=== PATIENT | male | born 1985 | race Caucasian/White ===

== ENCOUNTER 2022-09-09 10:19 | Emergency (ER) | payer OTHER, SELFPAY ==
--- NOTE | ~2022-09-09 | XR_ITS ---
EXAMINATION: XR HAND, RIGHT CLINICAL INFORMATION: Swelling, pain COMPARISON: None available. TECHNIQUE: PA, lateral, and oblique views of the right hand. FINDINGS: There is extensive soft tissue swelling around the head of the proximal phalanx second finger, no subcutaneous emphysema, adjacent bone is intact. The bones are normal. No fracture. Alignment is anatomic. Joint spaces are maintained. No erosions or soft tissue calcifications. XR/XR hand RT 2V IMPRESSION: * Extensive soft tissue swelling around the head of the proximal phalanx second finger. * No radiographic evidence of acute fracture.
[2022-09-09 10:52] VITALS: BP 122/84; PULSE 96; RESP 18; TEMP 36.9; O2SAT 98; BMI 21.7
[2022-09-09] MEDS: Lidocaine HCl 1 % MPF 2 ML VIAL INFILTRATI ×2 (11:09→11:22)
--- NOTE | 2022-09-09 11:14 | ED.EXTPRO ---
HPI - Extremity Problem General Chief complaint: Extremity Problem Stated complaint: Infected finger on R hand Time Seen by Provider: 09/09/22 10:56 Source: patient Mode of arrival: ambulatory Limitations: no limitations History of Present Illness HPI Narrative: 36-year-old male with history of opiate use disorder on methadone who was right hand dominant who presents to the ER with complaints of right index finger swelling, redness and pain for the last few days. Patient cannot recall if there is any injury or trauma. He reports he has tried to open it at home with a clean needle but was unable to express any drainage. He denies any fevers or chills. He reports that he has a lot of pain and swelling in the finger with difficulty with range of motion. No associated weakness, numbness or tingling. Patient reports he does have a history of opiate use disorder but has been sober and has not been using any IV drugs Related Data Previous Rx's Medication Instructions Recorded cephalexin 500 mg capsule 500 mg PO BID #14 caps 09/09/22 doxycycline monohydrate 100 mg 100 mg PO BID #14 caps 09/09/22 capsule ibuprofen 600 mg tablet 600 mg PO Q8H PRN pain #20 tabs 09/09/22 Allergies Allergy/AdvReac Type Severity Reaction Status Date / Time codeine [CODEINE] Allergy Unknown Vomiting Unverified 07/29/22 06:43 erythromycin base Allergy Unknown Unknown Unverified 07/29/22 06:43 [ERYTHROMYCIN BASE] Codeine Sulfate Allergy Unknown Unknown Uncoded 07/29/22 06:43 Review of Systems Review of Systems: Yes all other systems are reviewed and are negative Constitutional: Constitutional: Reports no additional constitutional complaints, Denies body ache(s), Denies chills, Denies fever(s), Denies headache(s) and Denies weakness Eyes: Eyes: Reports no additional eye complaints and Denies change in vision ENT: Reports system reviewed and no additional complaints, except as documented, Denies dizziness, Denies headache(s), Denies nasal congestion, Denies nasal discharge and Denies neck pain Cardiovascular: Cardiovascular: Reports no additional cardiovascular complaints, Denies chest pain, Denies leg edema and Denies dyspnea Respiratory: Respiratory: Reports no additional respiratory complaints, Denies cough and Denies dyspnea Gastrointestinal: Gastrointestinal: Reports no additional gastrointestinal complaints, Denies abdominal pain, Denies diarrhea, Denies nausea and Denies vomiting Genitourinary: Genitourinary: Denies urinary incontinence Musculoskeletal: Musculoskeletal: Reports no additional musculoskeletal complaints, Denies back pain, Denies arthralgias, Reports joint swelling, Reports limited range of motion, Denies neck pain, Denies numbness and Denies tingling Integumentary/Breasts: Skin/Breast: Reports system reviewed and no additional complaints, except as docu, Reports swelling, Reports erythema and Denies rash Neurologic: Reports system reviewed and no additional complaints, except as documented, Denies Abnormal speech present, Denies dizziness, Denies headache(s), Denies numbness, Denies tingling and Denies weakness PMFSH Past Medical History Attestation statement: The following information was validated with the patient. Source: old records reviewed and nursing notes reviewed Social History Social History Advance Directives: No Advance Directives Information Provided: Yes Physical Exam Vital Signs: Vital Signs: Last Vital Signs Temp 98.4 F 09/09/22 10:52 Pulse 96 09/09/22 10:52 Resp 18 09/09/22 10:52 BP 122/84 09/09/22 10:52 Pulse Ox 98 09/09/22 10:52 O2 Del Method Room Air 09/09/22 10:52 BMI result Body Mass Index 21.7 Const: General: cooperative, healthy appearing, comfortable and no acute distress Orientation/consciousness: patient oriented x3 Limitations: no limitations HEENT: Head: Yes normal to inspection Ears: hearing grossly normal bilaterally General nose exam: Normal external nose present Face and sinus: Yes normal facial exam Mouth: Normal oral and palatal mucosa present Throat: Yes posterior oropharynx normal Eyes: General: appearance normal, both eyes and all related structures Pupils: Equal, round and reactive pupils present Neck: Neck: Yes normal visual inspection Chest: Chest palpation & inspection: normal inspection of the chest Resp: Effort & Inspection: normal respiratory effort Auscultation: clear to auscultation bilaterally Cardio: Rate: regular rate Rhythm: regular rhythm Peripheral pulses: Peripheral pulses 2+ throughout GI: Inspection: Yes normal to inspection Palpation (GI): Soft to palpation and nontender Auscultation: normal bowel sounds Back/Spine/Pelvis: Thoracic/Lumbar Spine: thoracic and lumbar spine normal to inspection Skin: General skin exam: no rashes or lesions noted Neuro: General: patient oriented x3, no focal motor deficits and normal sensation to monofilament Cranial nerves: Yes Equal, round and reactive pupils present Cognition (Neuro): normal cognition Speech: No Abnormal speech present Gait exam (Neuro): Normal gait present Motor exam (neuro): 5/5 motor strength present throughout Extrem: Other: The area above is tender/fluctuant and warm. Limited active flexion d/t pain/swelling, extension is normal. Sensation intact distally. Course Course Course Narrative: X-ray shows no evidence of osteomyelitis. Patient had an I&D but we were unfortunately only able to express a small amount of serosanguineous fluid from the site. Patient does have some limited flexion which may be secondary to pain or swelling however could consider underlying deeper infection. I doubt tenosynovitis as patient has intact passive ROM. I spoke to hand surgery on-call. They will be happy to follow up with the patient the next few days in the office. I will initiate oral antibiotics in the meantime. I did discuss all this with the patient and I recommended that he return for any increase in swelling, increasing pain, limited range of motion, fever. Comfortable discharge home. Medications Administered Discontinued Medications Generic Name Dose Route Start Last Admin Trade Name Freq PRN Reason Stop Dose Admin Ketorolac Tromethamine 60 mg 09/09/22 12:55 09/09/22 13:08 Ketorolac Tromethamine 60 Mg/2 Ml Vial IM 09/09/22 12:56 60 mg ONCE ONE Administration Lidocaine HCl 2 ml 09/09/22 11:01 09/09/22 11:09 Lidocaine Hcl 1 % Mpf 2 Ml Vial INFILTRATI 09/09/22 11:02 2 ml ONCE ONE Administration Lidocaine HCl 2 ml 09/09/22 11:08 09/09/22 11:22 Lidocaine Hcl 1 % Mpf 2 Ml Vial INFILTRATI 09/09/22 11:09 2 ml ONCE ONE Administration Medical Decision Making Medical Decision Making [facility] Narrative: 36 yo male right hand dominant here with right index finger swelling/redness/limited ROM from unknown cause. Will obtain x-ray of hand, need I&D with digital block and culture. Differential Diagnosis Differential Diagnoses: The differential diagnosis associated with the presentation includes cellulitis, osteomyelitis, abscess, tenosynovitis Consult Healthcare Provider Management of the patient was discussed with: [facility] (Eve BARTON)-spoke to Eve BARTON as patient has limited ROM (may be from swelling/pain), unable to drain much from I&D-may need close follow-up and see if cellulitis is improving or if patient needs any further intervention-she is happy to see patient in office outpatient. Independent Interpretation I performed an independent interpretation of an: Plain X-Ray Interpretation: I independently viewed x-rayed you with radiologist report Radiology Impression Discussion of test interpretation with radiology: I have reviewed the radiologist's reading. Radiologist Impression: [address] [address] XRay Report Signed Patient: Jesús Pimentel MR#: [id number] : 1985 Acct:[id number] Age/Sex: 36 / M ADM Date: 09/09/22 Loc: .ED Attending Dr: Ordering Physician: Prerna Harrell MD Date of Service: 09/09/22 Procedure(s): XR hand RT 2V Accession Number(s): [id number] cc: Prerna Harrell MD~ EXAMINATION: XR HAND, RIGHT CLINICAL INFORMATION: Swelling, pain? COMPARISON: None available.? TECHNIQUE: PA, lateral, and oblique views of the right hand. FINDINGS: There is extensive soft tissue swelling around the head of the proximal phalanx second finger, no subcutaneous emphysema, adjacent bone is intact. The bones are normal. No fracture. Alignment is anatomic. Joint spaces are maintained. No erosions or soft tissue calcifications.? XR/XR hand RT 2V IMPRESSION: ? *? Extensive soft tissue swelling around the head of the proximal phalanx second finger. ? *? No radiographic evidence of acute fracture. ? Procedures Abscess I/D Site: hand Side (if applicable): right Local Anesthetic: other anesthetic Technique: needle aspiration and incised with blade Amount of fluid expressed (mL): 1 Sent for culture/gram staining?: Yes Irrigation: No Packing used?: none Nerve Block Nerve Block 1: Local Anesthetic: lidocaine 1% Amount of anesthesia used (mL): 3 Side: right Nerve Blocks: digital Procedure Successful: Yes Patient Tolerated Procedure: well Complications: none Discharge Plan Discharge Clinical Impression: Cellulitis Patient Disposition: Home, Self-Care Instructions: Cellulitis (DC), Warm Compress or Soak (ED) Additional Instructions: Warm soaks Alternate Motrin/Tylenol for pain as needed Take all the antibiotics as prescribed Return for increasing redness, increasing swelling, fever I will speak to the orthopedic surgeon today. Please call them tomorrow to set up an appointment for follow-up Prescriptions: New ibuprofen 600 mg tablet 600 mg PO Q8H PRN (Reason: pain) Qty: 20 0RF cephalexin 500 mg capsule 500 mg PO BID Qty: 14 0RF doxycycline monohydrate 100 mg capsule 100 mg PO BID Qty: 14 0RF Referrals: [facility] [Provider Group] - 1 week Stand Alone Forms: Work/School Release Interventions: ED Discharge Assessment Last Done: 09/09/22 13:20 Discharge Date/Time: 09/09/22 13:21
[2022-09-09] MEDS: Ketorolac Tromethamine 60 MG/2 ML VIAL IM (13:08)
== END 2022-09-09 13:21 | disposition home or self-care (01) ==
PROVIDERS: Emergency Provider Student in an Organized Health Care Education/Training Program; PCP Internal Medicine
DX: L03.011 Cellulitis of right finger (principal); M79.644 Pain in right finger(s)
CPT/HCPCS: 10060; 73120; 87070; 87077; 87186; 87205; 96372; 99283; 99284; J1885

== ENCOUNTER 2023-05-09 14:08 | Emergency (ER) | payer OTHER, SELFPAY ==
[2023-05-09 14:15] VITALS: BP 136/74; BP 155/135; PULSE 120; PULSE 132; RESP 18; TEMP 36.5; O2SAT 100; BMI 21.4
--- NOTE | 2023-05-09 14:24 | MHC.EDTECH ---
belongings in [place]
--- NOTE | 2023-05-09 14:24 | MHC.EDTECH ---
patient was changed over with security.
--- NOTE | 2023-05-09 15:00 | ECG_ITS ---
Test Reason : TACHYCARDIA Blood Pressure : / mmHG Vent. Rate : 110 BPM Atrial Rate : 110 BPM P-R Int : 162 ms QRS Dur : 104 ms QT Int : 372 ms P-R-T Axes : 063 056 017 degrees QTc Int : 503 ms Sinus tachycardia Incomplete right bundle branch block Borderline ECG When compared with ECG of 21-AUG-2012 14:06, Vent. rate has increased BY 37 BPM Referred By: Zaira Douglas Electronically Signed By:TRA TOLENTINO MD
[2023-05-09] MEDS: 0.9 % Sodium Chloride 1,000 ML 999 ML IV (15:10)
--- NOTE | 2023-05-09 15:10 | ED.GENADULT ---
HPI - General Adult General Chief complaint: Overdose Stated complaint: HEROIN USE Time Seen by Provider: 05/09/23 14:45 Source: patient and EMS Mode of arrival: EMS Limitations: no limitations History of Present Illness HPI narrative: 37-year-old male with a history of opiate use disorder presents to the ER with palpitations and anxiety. Patient reports that he sniffed 7-8 bags of heroin and then developed palpitations. He believes it may have been mixed with cocaine. He denies any intentional overdose. No SI or HI. He is currently on methadone but has missed his doses the last 2 days. He is interested in detox. Related Data Previous Rx's Medication Instructions Recorded cephalexin 500 mg capsule 500 mg PO BID #14 caps 09/09/22 doxycycline monohydrate 100 mg 100 mg PO BID #14 caps 09/09/22 capsule ibuprofen 600 mg tablet 600 mg PO Q8H PRN pain #20 tabs 09/09/22 Allergies Allergy/AdvReac Type Severity Reaction Status Date / Time codeine [CODEINE] Allergy Unknown Vomiting Verified 05/09/23 15:10 erythromycin base Allergy Unknown Unknown Verified 05/09/23 15:10 [ERYTHROMYCIN BASE] Codeine Sulfate Allergy Unknown Unknown Uncoded 05/09/23 15:10 Review of Systems Review of Systems: Yes all other systems are reviewed and are negative Constitutional: Constitutional: Reports no additional constitutional complaints, Denies body ache(s), Denies chills, Denies fever(s), Denies headache(s) and Denies weakness Eyes: Eyes: Reports no additional eye complaints and Denies change in vision ENT: Reports system reviewed and no additional complaints, except as documented, Denies dizziness, Denies headache(s), Denies nasal congestion, Denies nasal discharge and Denies neck pain Cardiovascular: Cardiovascular: Reports no additional cardiovascular complaints, Denies chest pain, Denies leg edema, Reports palpitations and Denies dyspnea Respiratory: Respiratory: Reports no additional respiratory complaints, Denies cough and Denies dyspnea Gastrointestinal: Gastrointestinal: Reports no additional gastrointestinal complaints, Denies abdominal pain, Denies diarrhea, Denies nausea and Denies vomiting Genitourinary: Genitourinary: Denies urinary incontinence Musculoskeletal: Musculoskeletal: Reports no additional musculoskeletal complaints, Denies back pain, Denies arthralgias, Denies joint swelling, Denies neck pain, Denies numbness and Denies tingling Integumentary/Breasts: Skin/Breast: Reports system reviewed and no additional complaints, except as docu and Denies rash Neurologic: Reports system reviewed and no additional complaints, except as documented, Denies Abnormal speech present, Denies dizziness, Denies headache(s), Denies numbness, Denies tingling and Denies weakness Endocrine: Endocrine: Reports palpitations PMFSH Past Medical History Attestation statement: The following information was validated with the patient. Source: old records reviewed and nursing notes reviewed Social History Social History Alcohol intake: current Alcohol intake frequency: holidays/special occasions only Smoked in Last 30 Days: No Use of substances other than those prescribed or required for medical reasons: Yes Substance Use Type: Heroin Substance Use Frequency: Chronic Longstanding Last Used Substance: Just Prior to Admission Any prior treatment program specific to substance use: Yes Advance Directives: No Advance Directives Information Provided: No Physical Exam ED Vital Signs: Vital Signs - 24 hr 05/09/23 14:15 05/09/23 15:48 05/09/23 17:14 Temperature 97.7 F Pulse Rate 132 H 111 H 100 Respiratory Rate 18 14 12 Blood Pressure 155/135 H 104/44 L 108/56 L Pulse Oximetry 100 99 99 Oxygen Delivery Method Room Air Room Air Room Air 05/09/23 19:35 Temperature 97.7 F Pulse Rate 102 H Respiratory Rate 16 Blood Pressure 113/70 Pulse Oximetry 96 Oxygen Delivery Method Room Air BMI result Body Mass Index 21.4 Const General: cooperative, healthy appearing, comfortable and no acute distress Orientation/consciousness: patient oriented x3 Limitations: no limitations HENOR Head: Yes normal to inspection Ears: hearing grossly normal bilaterally General nose exam: Normal external nose present Face and sinus: Yes normal facial exam Mouth: Normal oral and palatal mucosa present Throat: Yes posterior oropharynx normal Eyes General: appearance normal, both eyes and all related structures Pupils: Equal, round and reactive pupils present Neck Neck: Yes normal visual inspection Chest Chest palpation & inspection: normal inspection of the chest Resp Effort & Inspection: normal respiratory effort Auscultation: clear to auscultation bilaterally Cardio Rate: regular rate Rhythm: regular rhythm Peripheral pulses: Peripheral pulses 2+ throughout GI Inspection: Yes normal to inspection Palpation (GI): Soft to palpation and nontender Auscultation: normal bowel sounds Back/Spine/Pelvis Thoracic/Lumbar Spine: thoracic and lumbar spine normal to inspection Skin General skin exam: no rashes or lesions noted Neuro General: patient oriented x3, no focal motor deficits and normal sensation to monofilament Cranial nerves: Yes Equal, round and reactive pupils present Cognition (Neuro): normal cognition Speech: No Abnormal speech present Gait exam (Neuro): Normal gait present Motor exam (neuro): 5/5 motor strength present throughout Extrem General: Yes normal to inspection Course Course Course Narrative: 1600-Sign out to Drew BARTON pending re-evaluation, urine studies. Reevaluation(s) Reevaluation #1: Urine positive for opiates and fentanyl. Urine negative for UTI. Second troponin negative for heart attack. Patient will be discharged. Time: 19:51 Medications Administered Discontinued Medications Generic Name Dose Route Start Last Admin Trade Name Freq PRN Reason Stop Dose Admin Sodium Chloride 1,000 mls @ 999 mls/hr 05/09/23 15:00 05/09/23 16:11 Ns IV 05/09/23 16:00 Infused .Q1H1M STA Infusion Lorazepam 1 mg 05/09/23 15:00 05/09/23 15:15 Lorazepam 1 Mg Tablet PO 05/09/23 15:01 1 mg ONCE ONE Administration Medical Decision Making Medical Decision Making [facility] Narrative: 37-year-old male with a history of opiate use disorder presents to the ER with palpitations and anxiety.? Patient reports that he sniffed 7-8 bags of heroin and then developed palpitations.? He believes it may have been mixed with cocaine.? He denies any intentional overdose.? No SI or HI.? He is currently on methadone but has missed his doses the last 2 days.? He is interested in detox. Patient is tachycardic. Otherwise exam is normal. He is alert and oriented. Will obtain labs, EKG. Patient received IV fluids, low-dose Ativan and will reassess. Differential Diagnosis Differential Diagnoses: The differential diagnosis associated with the presentation includes polysubstance use Admission/Observation Consideration of admission/observation: Escalation of care including admission/observation considered Consult Healthcare Provider Management of the patient was discussed with: Behavioral Health Provider The patient did meet with our recovery team. At this time he is not interested in inpatient detox. He was provided with outpatient resource Lab Data [facility] Lab Attestation statement: I reviewed the patient's lab results. 05/09/23 15:10 05/09/23 15:10 Labs: Lab Results 05/09/23 05/09/23 05/09/23 Range/Units 15:10 16:14 17:16 WBC 5.8 (4.8-10.8) X10*3/uL RBC 4.10 L (4.60-5.80) X10*6/uL Hgb 12.1 L (14.0-18.0) g/dl Hct 35.9 L (42.0-52.0) % MCV 87.6 (80.0-98.0) fL MCH 29.5 (27.0-33.0) pg MCHC 33.7 (31.0-36.0) g/dl RDW 12.4 (11.0-16.0) % Plt Count 226 (160-400) X10*3/uL MPV 9.6 (9.4-12.4) fL Immature Gran % (Auto) 0.5 H (0.0-0.4) % Neut % (Auto) 63.6 (45-73) % Lymph % (Auto) 17.2 L (20-40) % Early % (Auto) 7.8 (2-11) % Eos % (Auto) 9.7 H (0-4) % Baso % (Auto) 1.2 (0-2) % Lymph # (Auto) 1.0 L (1.2-4.9) X10*3/uL Early # (Auto) 0.5 (0.1-1.2) X10*3/uL Eos # (Auto) 0.6 H (0.0-0.4) X10*3/uL Baso # (Auto) 0.1 (0.0-0.2) X10*3/uL Abs Immat Gran (auto) 0.03 (0.00-0.03) X10*3/uL Absolute Neuts (auto) 3.7 (2.0-8.3) x10*3/uL Absolute Nucleated RBC 0.000 (0.0-0.012) X10*3/uL Nucleated RBC % (auto) 0.0 (0.0-0.2) /100WBC Sodium 140 (135-145) mmol/L Potassium 4.4 (3.3-5.1) mmol/L Chloride 102 (96-108) mmol/L Carbon Dioxide 31 H (22-29) mmol/L Anion Gap 11 L (12-20) BUN 17 H (9-16) mg/dL Creatinine 1.08 (0.5-1.4) mg/dL Estim Creat Clear Calc 91.2 Estimated GFR > 60 Random Glucose 83 (60-115) mg/dL Calcium 9.1 (8.4-10.2) mg/dL Total Bilirubin 0.3 (0.0-1.0) mg/dL Direct Bilirubin 0.1 (0.0-0.5) mg/dL AST 33 (5-37) U/L ALT 54 H (0-40) U/L Alkaline Phosphatase 61 (39-117) U/L Total Creatine Kinase 73 (38-174) U/L Troponin I High Sens < 2.7 4.9 D (<3.5-35.0) ng/L Total Protein 6.7 (6.5-8.0) g/dL Albumin 4.1 (3.5-5.0) g/dL Urine Color Dark Yellow Urine Appearance Clear Urine pH 6.5 (5.0-9.0) Ur Specific [place] >= 1.030 H (1.005-1.025) Urine Protein Negative (Neg-Trace) mg/dL Urine Glucose (UA) Negative (Negative) mg/dL Urine Ketones Trace (Negative) mg/dL Urine Blood Negative (Negative) Urine Nitrite Negative (Negative) Ur Leukocyte Esterase Trace H (Negative) Urine RBC 0-2 (0-2) /HPF Urine WBC 0-5 (0-5) /HPF Ur Squamous Epith Cells 0-2 (0-2) /HPF Urine Bacteria None Seen (None Seen) Hyaline Casts 0-2 (0-2) /LPF Urine Opiates Screen POSITIVE H (Not Detect) Urine Fentanyl Screen POSITIVE H (Not Detect) Ur Barbiturates Screen Not Detected (Not Detect) Ur Phencyclidine Scrn Not Detected (Not Detect) Ur Amphetamines Screen Not Detected (Not Detect) U Benzodiazepines Scrn Not Detected (Not Detect) Urine Cocaine Screen Not Detected (Not Detect) U Marijuana (THC) Screen Not Detected (Not Detect) Independent Historian Clinical information obtained from an independent historian. History obtained from or confirmed by: Parent and EMS Discharge Plan Discharge Clinical Impression: Substance use Patient Disposition: Home, Self-Care Instructions: Polysubstance Abuse (ED) Prescriptions: No Action ibuprofen 600 mg tablet 600 mg PO Q8H PRN (Reason: pain) Qty: 20 0RF cephalexin 500 mg capsule 500 mg PO BID Qty: 14 0RF doxycycline monohydrate 100 mg capsule 100 mg PO BID Qty: 14 0RF Referrals: Po,Ondina Barragan MD [Primary Care Provider] - 1 week Interventions: ED Discharge Assessment Last Done: 05/09/23 19:58 Discharge Date/Time: 05/09/23 19:59 Print Language: Arabic
[2023-05-09] MEDS: LORazepam 1 MG TABLET PO (15:15)
[2023-05-09 15:19] LABS: MANUAL DIFF FLAG NO
--- NOTE | 2023-05-09 15:20 | PC.NURSE ---
pt speaking w/ recovery team at this time.
[2023-05-09 15:23] LABS: Basophils Absolute Auto 0.1 X10*3/uL (0.0-0.2); Basophils Percent Auto 1.2 % (0-2); Eosinophils Absolute Auto 0.6 X10*3/uL (0.0-0.4); Eosinophils Percent Auto 9.7 % (0-4); Hematocrit 35.9 % (42.0-52.0); Hemoglobin 12.1 g/dl (14.0-18.0); Imm Gran Abs Auto 0.03 X10*3/uL (0.00-0.03); Imm Gran Pct Auto 0.5 % (0.0-0.4); Lymphocytes Percent Auto 17.2 % (20-40); Mean Corpuscular HGB Conc 33.7 g/dl (31.0-36.0); Mean Corpuscular Hemoglobin 29.5 pg (27.0-33.0); Mean Corpuscular Volume 87.6 fL (80.0-98.0); Mean Platelet Volume 9.6 fL (9.4-12.4); Monocytes Absolute Auto 0.5 X10*3/uL (0.1-1.2); Monocytes Percent Auto 7.8 % (2-11); Neutrophils Absolute Auto 3.7 x10*3/uL (2.0-8.3); Neutrophils Percent Auto 63.6 % (45-73); Platelet Count 226 X10*3/uL (160-400); Red Cell Distribution Width 12.4 % (11.0-16.0); White Blood Count 5.8 X10*3/uL (4.8-10.8)
--- NOTE | 2023-05-09 15:23 | PC.NURSE ---
pt speaking w/ recovery team at this time. family bedside. call vivas placed within reach.
--- NOTE | 2023-05-09 15:24 | PC.NURSE ---
a&ox4, vss and up to date aside from being sinus tachy on the monitoring analyst. pt comes in today d/t worry after ingesting 7 bags of heroin intranasally. pt states that he snorts heroin around 6 times a day. pt states that after using [employer] - the sensation he felt seemed different than usual and he thinks that it was laced with another substance. pt has no complaints. denies pain/n/v/d. pt denies SI/HI at this time. pt states that he is interested in detox at this time. 20gIV placed in the left AC w/o difficulty. labs drawn and sent to lab. medications administered per provider order. no sob/wob noted. respirations even/unlabored. family bedside. call vivas placed within reach.
--- NOTE | 2023-05-09 15:33 | MHC.RECOVSUP ---
Met with pt in ED18 who is here for AZIZA. Pt informs he usually takes about 6 bags of heroin every 6 hours nasally however today he took 4 bags and started to feel anxious and thinks there was cocaine in his heroin. Pt has no history of OD or ATS and is currently getting Methadone take homes from [facility] but does not want to take a dose today until he feels better from the anxiety. Pt is not interested in ATS at this time but is open to it in the future if he is unable to slow down his use. T/W reviewed harm reduction and overdose prevention with pt who verbalized understanding and had no other questions or concerns at this time. Provider informed pt is not interested in ATS.
[2023-05-09 15:48] VITALS: BP 104/44; PULSE 111; RESP 14; O2SAT 99
[2023-05-09 15:51] LABS: Alanine Aminotransferase 54 U/L (0-40); Albumin Level 4.1 g/dL (3.5-5.0); Alkaline Phosphatase 61 U/L (39-117); Anion Gap 11 (12-20); Aspartate Amino Transferase 33 U/L (5-37); Bilirubin Direct 0.1 mg/dL (0.0-0.5); Bilirubin Total 0.3 mg/dL (0.0-1.0); Blood Urea Nitrogen 17 mg/dL (9-16); Calcium 9.1 mg/dL (8.4-10.2); Carbon Dioxide 31 mmol/L (22-29); Chloride 102 mmol/L (96-108); Creatinine Clr Calc Pharmacy 91.2; Estimated Glomerular Filt Rate > 60; Glucose Random 83 mg/dL (60-115); Potassium 4.4 mmol/L (3.3-5.1); Sodium 140 mmol/L (135-145); Total Protein 6.7 g/dL (6.5-8.0); Troponin-I High Sensitivity < 2.7 ng/L (<3.5-35.0)
[2023-05-09 16:26] LABS: Appearance Urine Clear; Color Urine Dark Yellow; Glucose Urine UA Negative (Negative); Leukocyte Esterase Urine Trace (Negative); Nitrite Urine Negative (Negative); PH 6.5 (5.0-9.0); Specific Gravity - Urine >= 1.030 (1.005-1.025); UMIC TRIGGER UACC YES; Urine Blood Negative (Negative); Urine Ketones Trace mg/dL (Negative); Urine Protein Negative (Neg-Trace)
[2023-05-09 16:35] LABS: Amphetamine Screen Urine Not Detected (Not Detect); Barbiturates, Urine Not Detected (Not Detect); Benzodiazepines Screen Urine Not Detected (Not Detect); Cannabinoid Screen Urine Not Detected (Not Detect); Cocaine Screen Urine Not Detected (Not Detect); Fentanyl, urine POSITIVE (Not Detect); Opiate Screen Urine POSITIVE (Not Detect); Phencyclidine Screen Urine Not Detected (Not Detect)
[2023-05-09 17:14] VITALS: BP 108/56; PULSE 100; RESP 12; O2SAT 99
--- NOTE | 2023-05-09 17:15 | PC.NURSE ---
vss and up to date a this time. pt remains sinus tachy at this time but HR continues to decrease. repeat trop obtained/sent to lab. resting comfortably in no apparent distress. respirations remain even and unlabored. family bedside. call vivas placed within reach.
[2023-05-09 17:30] LABS: Bacteria Urine None Seen (None Seen); Hyaline Casts Urine 0-2 /LPF (0-2); RBC Urine 0-2 /HPF (0-2); Squamous Epithelial Cell Urine 0-2 /HPF (0-2); WBC Urine 0-5 /HPF (0-5)
[2023-05-09 17:39] LABS: Troponin-I High Sensitivity 4.9 ng/L (<3.5-35.0)
[2023-05-09 19:35] VITALS: BP 113/70; PULSE 102; RESP 16; TEMP 36.5; O2SAT 96
--- NOTE | 2023-05-09 19:58 | PC.NURSE ---
belongings obtained from [employer]. pt provided w/ d/c paperwork.
== END 2023-05-09 19:59 | disposition home or self-care (01) ==
PROVIDERS: Nurse Practitioner Family; Physician Assistant; Emergency Provider Student in an Organized Health Care Education/Training Program; PCP Internal Medicine
DX: R00.2 Palpitations (principal); F41.1 Generalized anxiety disorder; F43.0 Acute stress reaction; R00.0 Tachycardia, unspecified; F11.10 Opioid abuse, uncomplicated; R11.2 Nausea with vomiting, unspecified; Z71.51 Drug abuse counseling and surveillance of drug abuser; Z79.899 Other long term (current) drug therapy
CPT/HCPCS: 36415; 80048; 80076; 80307; 81001; 82550; 84484; 85025; 93005; 96360; 99284; 99285

== ENCOUNTER → 2023-05-09 15:00 | Outpatient (BNV) | payer OTHER, SELFPAY | PROVIDERS: Emergency Provider Student in an Organized Health Care Education/Training Program; PCP Internal Medicine; Visit Provider Internal Medicine Cardiovascular Disease | DX: R00.0 Tachycardia, unspecified (principal); I45.10 Unspecified right bundle-branch block | CPT/HCPCS: 93010 ==

== ENCOUNTER 2024-07-06 09:08 | Outpatient (AMB) | payer OTHER, SELFPAY ==
[2024-07-06 09:09] VITALS: BP 128/76; PULSE 83; O2SAT 98; BMI 24.0
--- NOTE | 2024-07-06 09:09 | A.OFFPC_ITS ---
Vital Signs 07/06/24 09:09 Height 5 ft 11 in Weight 172 lb BMI 24.0 BP 128/76 Blood Pressure Location Lt brachial Position Sitting Pulse 83 Pulse Source Pulse Oximeter Pulse Oximetry (%) 98 Oxygen Delivery Method Room Air Intake Visit Reasons: establish care Intake Note: Patient states taking 200 mg of methadone Allergies codeine [CODEINE] Allergy (Unknown, Verified 07/06/24 09:09) Vomiting erythromycin base [ERYTHROMYCIN BASE] Allergy (Unknown, Verified 07/06/24 09:09) Unknown Codeine Sulfate Allergy (Unknown, Uncoded 07/06/24 09:09) Unknown Medication List - Last Reconciled 07/06/24 by Ondina Mahoney MD alpha lipoic acid 100 mg PO DAILY [collagen gummy PO .QD] finasteride 1 mg PO DAILY hydroxyzine HCl 50 mg PO BID PRN methadone 100 mg PO BID minoxidil 5% ([employer] Minoxidil) ea topical multivitamin 1 tab PO DAILY omega 8-xvl-ymm-fish oil 120-180-600 mg (Extreme Ty Ty-3) caps PO Tobacco use date assessed: 07/06/24 Dental Screening Dental Screen Date: 07/06/24 Did you have a dental visit in the last 12 months?: No Did you have a dental problem in the last 6 months where you did not have access to dental care?: No Was dental information given to patient?: Patient has dentist HPI establish care HPI Details The patient is a 38-year-old male presenting with a history of polysubstance abuse, primarily heroin and fentanyl, currently in remission with methadone maintenance therapy (200 mg per day in divided doses). He was previously seen in the emergency room in April 2023 for heroin use, where he experienced palpitations and anxiety. During that visit, blood work indicated anemia (hemoglobin 12.1 g/dL), elevated liver enzymes (AST 54 U/L), and positive urine screening for opiates and fentanyl. The patient reports a long-standing issue of anxiety for which he is currently taking hydroxyzine 50 mg per day in divided doses. He also reports hair loss for which he is using minoxidil and taking finasteride. The patient has an allergy to codeine and urethromycin. He reports intermittent rectal bleeding believed to be due to hemorrhoids, with blood noticeable on defecation. He has noted improvement in bleeding with the use of hydroxyzine. He last observed blood in stool approximately one month ago. The patient denies current alcohol consumption and reports smoking cessation over 20 years ago. He has experienced a significant lifestyle change post- detoxification since April 2023. - Encourage hydration and dietary adjust ments (minimal animal proteins, increase plant proteins) - Discussed flu and tetanus vaccinations - Advised on preventative measures again st COVID-19, flu, RSV, and norovirus - Recommended regular physical activity - Reports cessation of alcohol and cigar ette use, with methadone as the only current substance - Engaged in daily exercise, primarily c ycling - Regular dietary supplements intake (mu ltivitamins, collagen, omega 3/6/9, protein shakes) - No recent employment or familial respo nsibilities discussed - Lives alone, habits indicate a focus o n health improvement post-detox - Gastrointestinal: Denies constipation, recent cessation of rectal bleeding - Genitourinary: Expresses occasional ur inary hesitance primarily when waking - General: Denies nausea, vomiting, feve rs, frequent urination at night - Neurological: Denies seizures - Hematologic: Confirms past anemia diag nosis - Labs: Hemoglobin 12.1 g/dL, AST 54 U/L , Normal electrolytes, creatinine 1.08 mg/dL PFSH Family History (Updated 07/06/24 @ 09:31 by Ondina Mahoney MD) Mother Rheumatoid arthritis Father No problems noted. Maternal Aunt CVA (cerebral vascular accident) Maternal Grandfather CVA (cerebral vascular accident) Social History (Updated 07/06/24 @ 09:34 by Ondina Mahoney MD) Housing: Other Housing Other:: Lives with family Alcohol intake: former Comment: 2022 Patient Tobacco Use Status: Former Tobacco user Tobacco use type: Cigarette Years Smoked: stopped 1999, no marijuana 2022, last time used drugs 04/26/2024 Detox e-Cigarette/Vaping Use: Never Used Second Hand Smoke Exposure: Yes Substance Use Type: Heroin service: No Current occupational status: unemployed Current occupational exposures/hazards: No Cognitive needs: No Hearing needs: No Vision needs: Yes Questionnaire PHQ-9 Over the last 2 weeks, how often have you been bothered by any of the following problems? 1. Little interest or pleasure in doing things: not at all 2. Feeling down, depressed, or hopeless: not at all 3. Trouble falling or staying asleep, or sleeping too much: not at all 4. Feeling tired or having little energy: not at all 5. Poor appetite or overeating: not at all 6. Feeling bad about yourself - or that you are a failure or have let yourself or your family down: not at all 7. Trouble concentrating on things, such as reading the newspaper or watching television: not at all 8. Moving or speaking so slowly that other people could have noticed. Or the opposite - being so fidgety or restless that you have been moving around a lot more than usual: not at all 9. Thoughts that you would be better off or of hurting yourself in some way: not at all Total score: 0 Depression Screening Interpretation: Negative Depression Screening Done: Yes 60583 - PHQ-9 Billing: Yes Source: Developed by Drs. Ben Espinosa, Stephania Armas, Cas Wiggins and colleagues, with an educational suzan from [employer]. Thrive Questionnaire Date Thrive assessed: 07/06/24 I am a: Patient What is your living situation today?: I have a steady place to live Within the past 12 months, did the food you bought not last and you didn't have the money to get more?: Never true Within the past 12 months, did you worry whether your food would run out before you got money to buy more?: Never true Do you have trouble paying for medicines?: No Do you have trouble getting transportation to medical appointments?: No Do you have trouble paying your heating and electricity bill?: No Do you have trouble taking care of your child, family member or friend?: No Do you have trouble with day-to-day activities such as bathing, preparing meals, shopping, managing finances, etc.?: No Are you currently unemployed and looking for a job?: No Are you interested in more education?: No Currently or been in a relationship where the following occur: No concerns reported THRIVE Score: 0 AUDIT C Alcohol Use Questionnaire (AUDIT-C) 1. How often do you have a drink containing alcohol?: Never 3. How often do you have six or more drinks on one occasion?: Never Total Score: 0 SHANNON-7 AMB Questionnaire SHANNON-7 Date SHANNON - 7 assessed: 07/06/24 Feeling nervous, anxious, or on edge: 0 = Not at all Not being able to stop or control worryin = Not at all Worrying too much about different things: 0 = Not at all Trouble relaxin = Not at all Being so restless that it is hard to sit still: 0 = Not at all Becoming easily annoyed or irritable: 0 = Not at all Feeling afraid as if something awful might happen: 0 = Not at all Total SHANNON-7 score (0-4 normal; 5-9 mild; 10-14 moderate; 15-21 severe): 0 Source: Developed by Drs. Ben Espinosa, Stephania Armas, Cas Wiggins and colleagues, with an educational suzan from [employer]. SHANNON-7 Assessment Billing SHANNON-7 Assessment Tool: SHANNON-7 Assessment 67914 Physical exam (Primary Care) Vital Signs: Last Vital Signs Pulse 83 07/06/24 09:09 BP 128/76 07/06/24 09:09 Pulse Ox 98 07/06/24 09:09 Oxygen Delivery Method Room Air 07/06/24 09:09 BMI result Body Mass Index 24.0 Tobacco/Smoking Status: Tobacco use Status Tobacco use date assessed 07/06/24 07/06/24 09:17 Patient Tobacco Use Status Former Tobacco user 07/06/24 09:17 Tobacco use type Cigarette 07/06/24 09:17 e-Cigarette/Vaping Use Never Used 07/06/24 09:17 PHQ-9: PHQ-9 Score PHQ-9: Total score 0 07/06/24 09:17 Depression Screening Interpretation: Negative Thrive Assessment: Date of Thrive Assessment Date Thrive assessed 07/06/24 07/06/24 09:17 Currently or been in a relationship where the following occur: No concerns reported Const General: alert; No acute distress Eyes Conjunctivae: conjunctivae normal Resp Auscultation: clear to auscultation bilaterally Cardio Rate: regular rate Rhythm: regular rhythm GI Inspection: Yes normal to inspection Extrem General: Yes normal to inspection and No edema Coding Level of Care Code New Pt Level 4 (58635) Diagnoses Polysubstance abuse F19.10 Anemia D64.9 LFT elevation R79.89 Generalized anxiety disorder F41.1 Rectal bleed K62.5 Additional Codes SHANNON-7 Assessment Billing - SHANNON-7 Assessment Tool: SHANNON-7 Assessment 73056 ([id number]) PHQ-9 - 80811 - PHQ-9 Billing: Yes ([id number]) Assessment & Plan Assessment & Plan (1) Polysubstance abuse: Code(s): F19.10 - Other psychoactive substance abuse, uncomplicated Category: Medical Plan: Continue to follow-up with the methadone clinic (2) Anemia: Code(s): D64.9 - Anemia, unspecified Category: Medical Plan: Discussed about repeating test (3) LFT elevation: Code(s): R79.89 - Other specified abnormal findings of blood chemistry Category: Medical Plan: Advised to get test done as well as an ultrasound of the abdomen (4) Generalized anxiety disorder: Code(s): F41.1 - Generalized anxiety disorder Category: Medical Plan: Continue with present medication (5) Rectal bleed: Comment: 05/2024 Code(s): K62.5 - Hemorrhage of anus and rectum Category: Medical Plan: Will continue to monitor. And advised to get a physical exam Plan - Order follow-up blood work for complete blood count and liver function tests - Schedule an ultrasound of the liver to evaluate elevated enzyme levels - Conduct a urinalysis for assessment of urinary symptoms - Explore testosterone levels to address potential deficiencies related to substance abuse history - Continue hydroxyzine for anxiety, maintain with methadone for substance use remission - Discuss potential treatment for iron deficiency anemia based on upcoming lab results I reviewed with the patient that his current health management focuses on maintaining remission from substance abuse with methadone therapy. I discussed the implications of past polysubstance use on his liver and overall health. We addressed his anxiety management with hydroxyzine and acknowledged the improvement in his hemorrhoidal symptoms. I advised obtaining further lab work to monitor anemia and liver enzyme levels, as elevated liver enzymes signal potential liver health issues. A liver ultrasound is warranted to rule out any significant liver pathology. We discussed potential low testosterone levels related to past substance use, and I explained the potential indications for therapy based on forthcoming lab results. - Continue methadone and hydroxyzine as prescribed - Drink sufficient water daily and maintain a balanced diet rich in plant-based proteins - Avoid substances; maintain current sobriety - Follow-up with lab work as ordered to monitor liver function, anemia, and testosterone levels - Return for results discussion or any emerging symptoms like persistent bleeding, uncontrolled anxiety, or new substance cravings Orders: Orders Hepatitis B,C Profile Today R79.89 - Other specified abnormal findings of blood chemistry HIV Ab/Ag Today R79.89 - Other specified abnormal findings of blood chemistry T Spot TB Today R79.89 - Other specified abnormal findings of blood chemistry Syphilis Screen Today R79.89 - Other specified abnormal findings of blood chemistry Ferritin Today D64.9 - Anemia, unspecified IRON PROFILE Today D64.9 - Anemia, unspecified Thyroid Stimulating Hormone Today D64.9 - Anemia, unspecified Free T4 (Free Thyroxine) Today D64.9 - Anemia, unspecified US abdomen complete Today R79.89 - Other specified abnormal findings of blood chemistry Complete Blood Count Auto Diff Today R79.89 - Other specified abnormal findings of blood chemistry Comprehensive Met. Panel Today D64.9 - Anemia, unspecified Reticulocyte Count Today D64.9 - Anemia, unspecified Lipid Panel Today D64.9 - Anemia, unspecified, E78.00 - Pure hypercholesterolemia, unspecified Vitamin B12 and Folate Today D64.9 - Anemia, unspecified UA CC w/rflx Micro + Cult Today D64.9 - Anemia, unspecified, R30.0 - Dysuria Testosterone, Total Today F19.10 - Other psychoactive substance abuse, uncomplicated Medications: Discontinued ibuprofen Discontinued Reason: Patient no longer taking 600 mg PO Q8H PRN 20 tabs 0RF pain cephalexin Discontinued Reason: Patient Completed Course 500 mg PO BID 14 caps 0RF doxycycline monohydrate Discontinued Reason: Patient Completed Course 100 mg PO BID 14 caps 0RF
== END 2024-07-06 09:52 | disposition home or self-care (01) ==
PROVIDERS: PCP Internal Medicine; Visit Provider Internal Medicine
DX: F19.10 Other psychoactive substance abuse, uncomplicated (principal); D64.9 Anemia, unspecified; R79.89 Other specified abnormal findings of blood chemistry; F41.1 Generalized anxiety disorder; K62.5 Hemorrhage of anus and rectum

== ENCOUNTER 2024-07-06 09:08 | Outpatient (REF) | payer OTHER, SELFPAY ==
[2024-07-06 10:22] LABS: MANUAL DIFF FLAG NO
[2024-07-06 11:06] LABS: Basophils Absolute Auto 0.1 X10*3/uL (0.0-0.2); Basophils Percent Auto 1.2 % (0-2); Eosinophils Absolute Auto 0.1 X10*3/uL (0.0-0.4); Eosinophils Percent Auto 2.2 % (0-4); Hematocrit 39.3 % (42.0-52.0); Hemoglobin 12.8 g/dl (14.0-18.0); Imm Gran Abs Auto 0.01 X10*3/uL (0.00-0.03); Imm Gran Pct Auto 0.2 % (0.0-0.4); Immature Retic Fraction 7.3 % (2.3-13.4); Lymphocytes Absolute Auto 1.6 X10*3/uL (1.2-4.9); Lymphocytes Percent Auto 32.7 % (20-40); Mean Corpuscular HGB Conc 32.6 g/dl (31.0-36.0); Mean Corpuscular Hemoglobin 29.7 pg (27.0-33.0); Mean Corpuscular Volume 91.2 fL (80.0-98.0); Mean Platelet Volume 9.4 fL (9.4-12.4); Monocytes Absolute Auto 0.5 X10*3/uL (0.1-1.2); Monocytes Percent Auto 9.2 % (2-11); Neutrophils Absolute Auto 2.7 x10*3/uL (2.0-8.3); Neutrophils Percent Auto 54.5 % (45-73); Platelet Count 398 X10*3/uL (160-400); Red Blood Count 4.31 X10*6/uL (4.60-5.80); Red Cell Distribution Width 12.8 % (11.0-16.0); Retic HGB Equivalent 32.9 pg (30.0-35.0); Reticulocyte Percent 0.8 % (0.5-1.8); Reticulocytes Absolute 0.034 X10*6/uL (0.026-0.095); White Blood Count 4.9 X10*3/uL (4.8-10.8)
[2024-07-06 11:41] LABS: Alanine Aminotransferase 48 U/L (0-40); Albumin Level 4.3 g/dL (3.5-5.0); Alkaline Phosphatase 50 U/L (39-117); Anion Gap 11 (12-20); Aspartate Amino Transferase 41 U/L (5-37); Bilirubin Total 0.3 mg/dL (0.0-1.0); Blood Urea Nitrogen 21 mg/dL (9-16); Calcium 9.3 mg/dL (8.4-10.2); Carbon Dioxide 28 mmol/L (22-29); Chloride 104 mmol/L (96-108); Cholesterol 180 mg/dL (<200); Estimated Glomerular Filt Rate > 60; Glucose Random 94 mg/dL (60-115); HDL Cholesterol 53 mg/dL (>40); Iron 145 mcg/dL (45-160); LDL Cholesterol Calculated 99 mg/dL (<100); Percent Iron Saturation 48 % (15-50); Potassium 4.2 mmol/L (3.3-5.1); Sodium 139 mmol/L (135-145); Total Iron Binding Capacity 304 mcg/dL (228-428); Total Protein 7.1 g/dL (6.5-8.0); Triglycerides 142 mg/dL (<150); Unsaturated Iron Binding 159 ug/dL
[2024-07-06 11:41] LABS: Appearance Urine Clear; Color Urine Dark Yellow; Glucose Urine UA Negative (Negative); Leukocyte Esterase Urine Negative (Negative); Nitrite Urine Negative (Negative); Specific Gravity - Urine >= 1.030 (1.005-1.025); Urine Blood Negative (Negative); Urine Ketones 15 mg/dL (Negative); Urine Protein Negative (Neg-Trace)
[2024-07-06 11:57] LABS: HBS Num1 106.46 mIU/mL (0-7.99); HBsAGNum1 0.21 S/CO (0.00-0.99); HIV AB/AG Nonreactive (Nonreactive); HIV Num 1 0.16 S/CO (0.00-0.99); Hepatitis B Core Antibody Nonreactive (Nonreactive); Hepatitis B Surface Antigen Negative (Negative); Syphilis Screen Nonreactive (Nonreactive); ~HepC Num1 0.11 S/CO (0.00-0.79); ~Hepatitis B Surface Antibody REACTIVE (Nonreactive); ~Hepatitis C Antibody Nonreactive (Nonreactive)
[2024-07-06 12:00] LABS: Ferritin 92 ng/mL (20-250)
[2024-07-06 12:07] LABS: Folate 14.3 ng/mL (> or = 4.0); Vitamin B12 621 pg/mL (200-900)
[2024-07-08 21:17] LABS: TS Negative Control Passed; TS Panel A 0; TS Panel B 0; TS Positive Control Passed; TSpotTB Negative (Negative)
[2024-07-15 01:04] LABS: Testosterone, Total 428 ng/dL (250-1100)
== END 2024-07-06 09:09 | disposition home or self-care (01) ==
LOC: HO.LAB 09:08
PROVIDERS: PCP Internal Medicine; Visit Provider Internal Medicine
DX: R79.89 Other specified abnormal findings of blood chemistry (principal); D64.9 Anemia, unspecified; F19.10 Other psychoactive substance abuse, uncomplicated; E78.00 Pure hypercholesterolemia, unspecified; R30.0 Dysuria; F41.1 Generalized anxiety disorder; K62.5 Hemorrhage of anus and rectum
CPT/HCPCS: 36415; 80053; 80061; 81003; 82607; 82728; 82746; 83540; 84403; 84439; 84443; 85025; 85045; 86481; 86704; 86706; 86780; 86803; 87340; 87389; 96127; 99202

== ENCOUNTER 2024-08-05 08:42 | Outpatient (REF) | payer OTHER, SELFPAY ==
--- NOTE | ~2024-08-05 | US_ITS ---
EXAMINATION: US ABDOMEN HISTORY: LFT ELEVATION TECHNIQUE: Real-time grayscale ultrasound imaging of the abdomen was performed and images were reviewed. COMPARISON: There are no prior studies for comparison. FINDINGS: Liver: The right lobe of the liver measures 14.9 cm in size. The left lobe of the liver measures 9.5 cm in size. The liver demonstrates increased echotexture, consistent with steatosis. No focal mass or intrahepatic biliary ductal dilatation is identified. There is normal hepatopedal flow in the portal vein. Gallbladder and biliary tree: There is debris in the gallbladder. The gallbladder is otherwise unremarkable, without evidence of calculi, wall thickening, or pericholecystic fluid. There is no sonographic Haq sign. The common bile duct is normal in caliber measuring 4 mm. Kidneys: The right kidney measures 11.2 cm in length. The left kidney measures 11.2 cm in length. The kidneys are unremarkable, without evidence of masses, hydronephrosis, or calculi. Pancreas: The pancreatic head, neck, and body are unremarkable. The pancreatic tail is obscured by bowel gas. Spleen: The spleen is normal in size and contour, measuring the spleen measures 11.2 cm in length. cm in length. Abdominal aorta and inferior vena cava: The visualized portions of the abdominal aorta and inferior vena cava are normal in caliber. There is no free fluid in the abdomen. US/US abdomen complete IMPRESSION: Hepatic steatosis. Debris in the gallbladder. Electronically signed by: Ben Murcia MD 08/05/2024 10:14 AM EDT
== END 2024-08-05 08:43 | disposition home or self-care (01) ==
LOC: HO.US 08:42
PROVIDERS: PCP Internal Medicine; Visit Provider Internal Medicine
DX: R79.89 Other specified abnormal findings of blood chemistry (principal)
CPT/HCPCS: 76700

== ENCOUNTER → 2024-08-05 08:45 | Outpatient (BNV) | payer OTHER, SELFPAY | PROVIDERS: PCP Internal Medicine; Visit Provider Radiology Diagnostic Radiology | DX: K76.0 Fatty (change of) liver, not elsewhere classified (principal); K82.8 Other specified diseases of gallbladder | CPT/HCPCS: 76700 ==

== ENCOUNTER 2025-03-18 23:31 | Emergency (ER) | payer OTHER, SELFPAY ==
[2025-03-18 23:42] VITALS: BP 146/70; PULSE 90; RESP 20; TEMP 36.7; O2SAT 98; BMI 22.3
--- NOTE | 2025-03-19 | ECG_ITS ---
Test Reason : DIZZINESS Blood Pressure : */* mmHG Vent. Rate : 60 BPM Atrial Rate : 60 BPM P-R Int : 156 ms QRS Dur : 102 ms QT Int : 454 ms P-R-T Axes : 69 55 47 degrees QTcB Int : 454 ms Normal sinus rhythm Incomplete right bundle branch block Borderline ECG When compared with ECG of 09-May-2023 15:54, Vent. rate has decreased by 50 bpm Referred By: Ondina Mahoney Electronically Signed By: MANINDER GREENFIELD
--- NOTE | 2025-03-19 00:34 | PC.NURSE ---
few hours ago in kitchen cooking, felt dizzy and as if he was going to pass out. He walked outside and felt a little better. This happened two days in a row. Once the initial episode passed he felt extra tired. pt fearful of passing out.
--- NOTE | 2025-03-19 00:38 | PC.NURSE ---
pt concerned with living situation regarding possibly being the cause of this, denies lead pain that he knows of and states he has seen black mold in basement. denies SOB, n/v, mild diarrhea at baseline due to medication (hydroxyzine).
[2025-03-19 00:42] LABS: MANUAL DIFF FLAG NO
[2025-03-19 00:44] LABS: Hematocrit 36.0 % (42.0-52.0); Hemoglobin 12.0 g/dl (14.0-18.0); Imm Gran Abs Auto 0.02 X10*3/uL (0.00-0.03); Imm Gran Pct Auto 0.3 % (0.0-0.4); Lymphocytes Absolute Auto 1.4 X10*3/uL (1.2-4.9); Mean Corpuscular HGB Conc 33.3 g/dl (31.0-36.0); Mean Corpuscular Hemoglobin 29.8 pg (27.0-33.0); Mean Corpuscular Volume 89.3 fL (80.0-98.0); NRBC Abs Auto 0.000 X10*3/uL (0.0-0.012); NRBC Pct Auto 0.0 /100WBC (0.0-0.2); Platelet Count 330 X10*3/uL (160-400); Red Blood Count 4.03 X10*6/uL (4.60-5.80); White Blood Count 7.4 X10*3/uL (4.8-10.8)
[2025-03-19 00:57] LABS: Alanine Aminotransferase 31 U/L (0-40); Albumin Level 4.9 g/dL (3.5-5.0); Alkaline Phosphatase 40 U/L (39-117); Anion Gap 12 (12-20); Aspartate Amino Transferase 34 U/L (5-37); Blood Urea Nitrogen 8 mg/dL (9-16); Calcium 9.1 mg/dL (8.4-10.2); Carbon Dioxide 29 mmol/L (22-29); Chloride 102 mmol/L (96-108); Creatinine Clr Calc Pharmacy 107.2; Estimated Glomerular Filt Rate > 60; Potassium 4.4 mmol/L (3.3-5.1); Sodium 139 mmol/L (135-145); Total Protein 7.1 g/dL (6.5-8.0)
[2025-03-19 01:35] LABS: Magnesium 2.1 mg/dL (1.6-2.6)
[2025-03-19 01:42] VITALS: BP 122/72; PULSE 60; RESP 16; TEMP 36.4; O2SAT 99
[2025-03-19 01:43] LABS: Appearance Urine Clear; Glucose Urine UA Negative (Negative); PH 6.5 (5.0-9.0); Specific Gravity - Urine >= 1.030 (1.005-1.025)
[2025-03-19 01:50] VITALS: BP 122/72; PULSE 60; RESP 16; TEMP 36.4; O2SAT 99
[2025-03-19 01:53] LABS: Cannabinoid Screen Urine Not Detected (Not Detect)
--- NOTE | 2025-03-19 01:58 | ED.GENADULT ---
HPI - General Adult General Chief complaint: General Medical Stated complaint: light headed/dizzy Time Seen by Provider: 03/19/25 00:45 Source: patient Limitations: other (Appears intoxicated) History of Present Illness ED Provider: Selena Elias PA-C HPI narrative: 39-year-old male who is currently on methadone. presents with feeling ?strange?. Associated light-headedness. Patient made a comment in triage that he feels as if ?someone is trying to poison him?. Associated fatigue. Denies chest pain, shortness of breath, recent cough or cold symptoms, no fever. No belly pain no nausea vomiting. Patient states he only has been feeling this way when he is in his kitchen. If he goes outside he feels better. He is not living in a new home, he has been in the same place for several years. His home has been screened for carbon monoxide. He thinks his landlord maybe using a product outside to seal holes from chipmunks, or a poison to get rid of rodents, that may be causing his symptoms, he is unsure. Denies increased dose of his methadone. Related Data Home Medications ?Medication ?Instructions ?Recorded ?Confirmed alpha lipoic acid 100 mg capsule 100 mg PO DAILY 07/06/24 07/06/24 collagen gummy PO .QD 07/06/24 finasteride 1 mg tablet 1 mg PO DAILY 07/06/24 07/06/24 hydroxyzine HCl 25 mg tablet 50 mg PO BID PRN 07/06/24 07/06/24 methadone 10 mg/5 mL oral solution 100 mg PO BID 07/06/24 07/06/24 minoxidil 5 % topical foam ea topical 07/06/24 07/06/24 (Daylogic Minoxidil) multivitamin 1 tab PO DAILY 07/06/24 07/06/24 omega 3-dha 120 mg-epa 180 mg-fish cap PO 07/06/24 07/06/24 oil 600 mg capsule (Extreme Eva-3) Allergies Allergy/AdvReac Type Severity Reaction Status Date / Time codeine (CODEINE) Allergy Unknown Vomiting Verified 03/18/25 23:46 erythromycin base Allergy Unknown Unknown Verified 03/18/25 23:46 (ERYTHROMYCIN BASE) Codeine Sulfate Allergy Unknown Unknown Uncoded 03/18/25 23:46 [facility] Family History Family History (Updated 07/06/24 @ 09:31 by Ondina Mahoney MD) Mother Rheumatoid arthritis Father No problems noted. Maternal Aunt CVA (cerebral vascular accident) Maternal Grandfather CVA (cerebral vascular accident) Social History Social History (Updated 07/06/24 @ 09:34 by Ondina Mahoney MD) Housing: Other Housing Other:: Lives with family Alcohol intake: former Comment: 2022 Patient Tobacco Use Status: Former Tobacco user Tobacco use type: Cigarette Years Smoked: stopped 1999, no marijuana 2022, last time used drugs 04/26/2024 Detox Smoked in Last 30 Days: No e-Cigarette/Vaping Use: Never Used Second Hand Smoke Exposure: Yes Use of substances other than those prescribed or required for medical reasons: No Substance Use Type: Heroin Advance Directives: No Advance Directives Information Provided: Yes Do you have a plan to hurt others: No Plan service: No Current occupational status: unemployed Current occupational exposures/hazards: No Cognitive needs: No Hearing needs: No Vision needs: Yes Physical Exam ED Vital Signs: Vital Signs - 24 hr 03/18/25 23:42 Temperature 98.1 F Pulse Rate 90 Respiratory Rate 20 Blood Pressure 146/70 H Pulse Oximetry 98 Oxygen Delivery Method Room Air BMI result Body Mass Index 22.3 Medical Decision Making Medical Decision Making MDM Narrative: 39-year-old male who is currently on methadone. presents with feeling ?strange?. Associated light-headedness. Patient made a comment in triage that he feels as if ?someone is trying to poison him?. Associated fatigue. Denies chest pain, shortness of breath, recent cough or cold symptoms, no fever. No belly pain no nausea vomiting. Patient states he only has been feeling this way when he is in his kitchen. If he goes outside he feels better. He is not living in a new home, he has been in the same place for several years. His home has been screened for carbon monoxide. He thinks his landlord maybe using a product outside to seal holes from chipmunks, or a poison to get rid of rodents, that may be causing his symptoms, he is unsure. Denies increased dose of his methadone. Problem: History: Per patient I have considered the following differential diagnoses: Anemia, dehydration, electrolyte abnormality, viral syndrome, drug/alcohol intoxication, carbon monoxide poisoning, Plan: Patient's symptoms are very nonspecific, he is only having symptoms in his kitchen, he is likely coming in contact with the an irritant that has bothering him. Screening labs were obtained from triage including a drug screen, he is only positive for methadone, they have not increased his methadone dose to account for his lightheadedness. He is not anemic, not dehydrated no electrolyte abnormality. The patient states his landlord has also used a different cleaning product within the home, I suggested he speak with the landlord about the products that she has been using, perhaps he can review the products with poison control. He verbalizes understanding. He was hoping that we could do further testing from the emergency department. I have independently reviewed the following tests: Labs: No leukocytosis, not anemic, no electrolyte abnormality, urine not infected EKG: Sinus rhythm rate of 60, incomplete right bundle noted, QTC 454, no ischemic changes Toxicology screen: Ethanol less than 10, tox screen positive for methadone Differential Diagnosis Differential Diagnoses: The differential diagnosis associated with the presentation includes see medical decision-making Admission/Observation Consideration of admission/observation: Escalation of care including admission/observation considered Not applicable Lab Data MDM Lab Attestation statement: I reviewed the patient's lab results. 03/19/25 00:32 03/19/25 00:32 Labs: Lab Results 03/19/25 03/19/25 Range/Units 00:32 01:12 EST WBC 7.4 (4.8-10.8) X10*3/uL RBC 4.03 L (4.60-5.80) X10*6/uL Hgb 12.0 L (14.0-18.0) g/dl Hct 36.0 L (42.0-52.0) % MCV 89.3 (80.0-98.0) fL MCH 29.8 (27.0-33.0) pg MCHC 33.3 (31.0-36.0) g/dl RDW 13.1 (11.0-16.0) % Plt Count 330 (160-400) X10*3/uL MPV 9.4 (9.4-12.4) fL Immature Gran % (Auto) 0.3 (0.0-0.4) % Neut % (Auto) 72.1 (45-73) % Lymph % (Auto) 18.8 L (20-40) % Dare % (Auto) 7.6 (2-11) % Eos % (Auto) 0.5 (0-4) % Baso % (Auto) 0.7 (0-2) % Lymph # (Auto) 1.4 (1.2-4.9) X10*3/uL Dare # (Auto) 0.6 (0.1-1.2) X10*3/uL Eos # (Auto) 0.0 (0.0-0.4) X10*3/uL Baso # (Auto) 0.1 (0.0-0.2) X10*3/uL Abs Immat Gran (auto) 0.02 (0.00-0.03) X10*3/uL Absolute Neuts (auto) 5.3 (2.0-8.3) x10*3/uL Absolute Nucleated RBC 0.000 (0.0-0.012) X10*3/uL Nucleated RBC % (auto) 0.0 (0.0-0.2) /100WBC Sodium 139 (135-145) mmol/L Potassium 4.4 (3.3-5.1) mmol/L Chloride 102 (96-108) mmol/L Carbon Dioxide 29 (22-29) mmol/L Anion Gap 12 (12-20) BUN 8 L (9-16) mg/dL Creatinine 0.94 (0.5-1.4) mg/dL Estim Creat Clear Calc 107.2 Estimated GFR > 60 Random Glucose 126 H (60-115) mg/dL Calcium 9.1 (8.4-10.2) mg/dL Magnesium 2.1 (1.6-2.6) mg/dL Total Bilirubin 0.2 (0.0-1.0) mg/dL AST 34 (5-37) U/L ALT 31 (0-40) U/L Alkaline Phosphatase 40 (39-117) U/L Total Protein 7.1 (6.5-8.0) g/dL Albumin 4.9 (3.5-5.0) g/dL Urine Color Yellow Urine Appearance Clear Urine pH 6.5 (5.0-9.0) Ur Specific [place] >= 1.030 H (1.005-1.025) Urine Protein Negative (Neg-Trace) mg/dL Urine Glucose (UA) Negative (Negative) mg/dL Urine Ketones Trace (Negative) mg/dL Urine Blood Negative (Negative) Urine Nitrite Negative (Negative) Ur Leukocyte Esterase Negative (Negative) Urine Opiates Screen Not Detected (Not Detect) Ur Buprenorphine Scrn Not Detected (Not Detect) ng/mL Ur Oxycodone Screen Not Detected (Not Detect) ng/mL Urine Methadone Screen Positive H (Not Detect) ng/mL Urine Fentanyl Screen Not Detected (Not Detect) Ur Barbiturates Screen Not Detected (Not Detect) Ur Phencyclidine Scrn Not Detected (Not Detect) Ur Amphetamines Screen Not Detected (Not Detect) U Benzodiazepines Scrn Not Detected (Not Detect) Urine Cocaine Screen Not Detected (Not Detect) U Marijuana (THC) Screen Not Detected (Not Detect) Ethyl Alcohol < 10 mg/dL Independent Interpretation I performed an independent interpretation of an: EKG Discharge Plan Discharge Clinical Impression: Episodic lightheadedness Patient Disposition: Home, Self-Care Instructions: Lightheadedness (ED) Additional Instructions: All of your screening labs were completely normal, you're toxicology screen was only positive for methadone. I am providing you with a contact for poison control. If you could speak with your land lord, perhaps you could review the active ingredients listed on the products they have been using in your home and around your home, you may be reacting to them. Regional poison control You can also follow up with your primary care provider for further guidance Prescriptions: No Action methadone 10 mg/5 mL solution 100 mg PO BID hydroxyzine HCl 25 mg tablet 50 mg PO BID PRN multivitamin Tablet 1 tab PO DAILY collagen gummy PO .QD finasteride 1 mg tablet 1 mg PO DAILY minoxidil [Daylogic Minoxidil] 5 % foam topical Extreme Eva-3 120-180-600 mg capsule PO alpha lipoic acid 100 mg capsule 100 mg PO DAILY Print Language: Estonian
== END 2025-03-19 01:52 | disposition home or self-care (01) ==
PROVIDERS: Physician Assistant Medical; Emergency Provider Emergency Medicine; PCP Internal Medicine
DX: R42 Dizziness and giddiness (principal); R53.83 Other fatigue; I45.10 Unspecified right bundle-branch block; R94.31 Abnormal electrocardiogram [ECG] [EKG]; Z79.899 Other long term (current) drug therapy; Z87.891 Personal history of nicotine dependence; Z51.81 Encounter for therapeutic drug level monitoring
CPT/HCPCS: 36415; 80053; 80307; 81003; 83735; 85025; 93005; 99284

== ENCOUNTER → 2025-03-19 00:43 | Outpatient (BNV) | payer OTHER, SELFPAY | PROVIDERS: Emergency Provider Emergency Medicine; PCP Internal Medicine; Visit Provider Internal Medicine | DX: I45.10 Unspecified right bundle-branch block (principal) | CPT/HCPCS: 93010 ==

== ENCOUNTER 2025-03-27 16:41 | Outpatient (AMB) | payer OTHER, SELFPAY ==
[2025-03-27 16:48] VITALS: BP 140/92; PULSE 84; TEMP 36.3; O2SAT 94; BMI 24.2
--- NOTE | 2025-03-27 16:48 | A.OFFPC_ITS ---
Vital Signs 03/27/25 16:48 03/27/25 17:33 Height 5 ft 11 in Weight 173 lb 4 oz BMI 24.2 BP 140/92 H 130/78 Blood Pressure Location Lt brachial Lt brachial Position Sitting Sitting Pulse 84 Pulse Source Pulse Oximeter Temp 97.3 F Temp Source Temporal Artery Scan Pulse Oximetry (%) 94 Oxygen Delivery Method Room Air Intake Visit Reasons: [facility] 03/19 light headed/dizzy Allergies codeine (CODEINE) Allergy (Unknown, Verified 03/27/25 16:51) Vomiting erythromycin base (ERYTHROMYCIN BASE) Allergy (Unknown, Verified 03/27/25 16:51) Unknown Codeine Sulfate Allergy (Unknown, Uncoded 03/27/25 16:51) Unknown Tobacco use date assessed: 03/27/25 Dental Screening Dental Screen Date: 03/27/25 Did you have a dental visit in the last 12 months?: No Did you have a dental problem in the last 6 months where you did not have access to dental care?: No Was dental information given to patient?: No HPI [facility] 03/19 light headed/dizzy HPI Details had some chemical poured in the sick and was wearing a mask- (oven cleaner carpet and upholstery) stays 2 days after still feeling the same. [facility] Family History Mother Rheumatoid arthritis Father No problems noted. Maternal Aunt CVA (cerebral vascular accident) Maternal Grandfather CVA (cerebral vascular accident) Social History Housing: Other Housing Other:: Lives with family Alcohol intake: former Comment: 2022 Patient Tobacco Use Status: Former Tobacco user Tobacco use type: Cigarette Years Smoked: stopped 1999, no marijuana 2022, last time used drugs 04/26/2024 Detox e-Cigarette/Vaping Use: Never Used Second Hand Smoke Exposure: Yes Substance Use Type: Heroin service: No Current occupational status: unemployed Current occupational exposures/hazards: No Cognitive needs: No Hearing needs: No Vision needs: Yes Questionnaire PHQ-9 Over the last 2 weeks, how often have you been bothered by any of the following problems? 1. Little interest or pleasure in doing things: not at all 2. Feeling down, depressed, or hopeless: not at all 3. Trouble falling or staying asleep, or sleeping too much: not at all 4. Feeling tired or having little energy: not at all 5. Poor appetite or overeating: not at all 6. Feeling bad about yourself - or that you are a failure or have let yourself or your family down: not at all 7. Trouble concentrating on things, such as reading the newspaper or watching television: not at all 8. Moving or speaking so slowly that other people could have noticed. Or the opposite - being so fidgety or restless that you have been moving around a lot more than usual: not at all 9. Thoughts that you would be better off or of hurting yourself in some way: not at all Total score: 0 Depression Screening Interpretation: Negative Depression Screening Done: Yes Source: Developed by Drs. Ben Espinosa, Stephania Armas, Cas Wigigns and colleagues, with an educational suzan from [employer]. Thrive Questionnaire Date Thrive assessed: 07/06/24 I am a: Patient What is your living situation today?: I have a steady place to live Within the past 12 months, did the food you bought not last and you didn't have the money to get more?: Sometimes True Within the past 12 months, did you worry whether your food would run out before you got money to buy more?: Sometimes True Do you have trouble paying for medicines?: No Do you have trouble getting transportation to medical appointments?: Yes Do you have trouble paying your heating and electricity bill?: No Do you have trouble taking care of your child, family member or friend?: No Do you have trouble with day-to-day activities such as bathing, preparing meals, shopping, managing finances, etc.?: No Are you currently unemployed and looking for a job?: No Are you interested in more education?: No Please select the resources that you would like help with: None Currently or been in a relationship where the following occur: No concerns reported THRIVE Score: 3 AUDIT C Alcohol Use Questionnaire (AUDIT-C) 1. How often do you have a drink containing alcohol?: Never 3. How often do you have six or more drinks on one occasion?: Never Total Score: 0 SHANNON-7 AMB Questionnaire SHANNON-7 Date SHANNON - 7 assessed: 07/06/24 Feeling nervous, anxious, or on edge: 0 = Not at all Not being able to stop or control worryin = Not at all Worrying too much about different things: 0 = Not at all Trouble relaxin = Not at all Being so restless that it is hard to sit still: 0 = Not at all Becoming easily annoyed or irritable: 0 = Not at all Feeling afraid as if something awful might happen: 0 = Not at all Total SHANNON-7 score (0-4 normal; 5-9 mild; 10-14 moderate; 15-21 severe): 0 Source: Developed by Drs. Ben Espinosa, Stephania Armas, Cas Wiggins and colleagues, with an educational suzan from [employer]. Physical exam (Primary Care) Vital Signs: Last Vital Signs Temp 97.3 F 03/27/25 16:48 Pulse 84 03/27/25 16:48 BP 130/78 03/27/25 17:33 Pulse Ox 94 03/27/25 16:48 Oxygen Delivery Method Room Air 03/27/25 16:48 BMI result Body Mass Index 24.2 Tobacco/Smoking Status: Tobacco use Status Tobacco use date assessed 03/27/25 03/27/25 16:52 Patient Tobacco Use Status Former Tobacco user 03/27/25 16:48 Tobacco use type Cigarette 03/27/25 16:48 e-Cigarette/Vaping Use Never Used 03/27/25 16:48 PHQ-9: PHQ-9 Score PHQ-9: Total score 0 03/27/25 17:26 Depression Screening Interpretation: Negative Thrive Assessment: Date of Thrive Assessment Date Thrive assessed 07/06/24 03/27/25 16:48 Currently or been in a relationship where the following occur: No concerns reported Const General: alert; No acute distress Eyes Conjunctivae: conjunctivae normal Resp Auscultation: clear to auscultation bilaterally Cardio Rate: regular rate Rhythm: regular rhythm GI Inspection: Yes normal to inspection Extrem General: Yes normal to inspection and No edema Coding Level of Care Code Est Pt Level 4 (71399) Diagnoses Polysubstance abuse F19.10 Hepatic steatosis K76.0 Anemia D64.9 Generalized anxiety disorder F41.1 Assessment & Plan Assessment & Plan (1) Polysubstance abuse: Code(s): F19.10 - Other psychoactive substance abuse, uncomplicated Category: Medical Plan: Patient on methadone (2) Hepatic steatosis: Comment: July 2024Hepatic steatosis. Debris in the gallbladder Code(s): K76.0 - Fatty (change of) liver, not elsewhere classified Category: Medical Plan: Low-fat diet and exercise (3) Anemia: Code(s): D64.9 - Anemia, unspecified Category: Medical Plan: Chronic and stable (4) Generalized anxiety disorder: Code(s): F41.1 - Generalized anxiety disorder Category: Medical Plan: Stable on hydroxyzine Plan History of Present Illness The patient is a 39-year-old male presenting for a follow-up visit. He has a history of polysubstance abuse, generalized anxiety disorder, hepatic steatosis, and rectal bleeding. The last visit was in June 2024. Recently, the patient experienced an episode where he felt he was going to pass out while cooking in his kitchen, which was ventilated. He suspects the symptoms were due to inhaling a chemical, possibly an oven cleaner carpet and upholstery, used in the kitchen. His symptoms improved after he went outside, but he continued to feel a lesser version of the same sensation for a couple of days, including an episode while at the ER. He has been feeling progressively better since the initial exposure and now wears a mask in the kitchen. The patient has a chronic anemia that has been present for two to three years, with a hemoglobin of 12 and hematocrit of 36. He has a history of intermittent rectal bleeding from what he believes is an anal fissure, which he attributes to passing hard stools. He notes that since starting hydroxyzine, his stool consistency has changed and the bleeding has not been happening. He has a history of polysubstance abuse and is currently on methadone. His urine toxicology is positive for methadone but negative for other substances, although he had a positive test for fentanyl in 2022. His anxiety is stable on hydroxyzine. An abdominal ultrasound in July confirmed hepatic steatosis, and his liver enzymes, which were elevated in June, have since normalized. Health Maintenance - Diet: A low-fat diet is recommended. - Exercise: Exercise is recommended. - Caffeine Intake: The patient drinks about a pot of coffee a day to counteract fatigue from methadone; he was advised to reduce his intake. - Hydration: The patient was advised to ensure adequate fluid intake. - Vaccinations: The patient declined receiving any vaccines. Social History - Substance Use: The patient is on methadone maintenance therapy for a history of polysubstance abuse. - Urine toxicology screen is positive for methadone but negative for other substances. - He had one instance of testing positive for fentanyl in 2022. - Caffeine Intake: He reports drinking about a pot of coffee (approximately 12 glasses) per day to counter the sedating effects of methadone. - Nutrition: He has been advised to follow a low-fat diet. - Exercise: He has been advised to exercise. Review of Systems - Respiratory: Denies cough. - Reports possible mild shortness of breath but states his breathing is good. - Musculoskeletal: Denies leg swelling. - Neurological: Reports occasional numbness in a limb if held in one position for too long, which has been happening for a long time. - Denies current dizziness but reports a recent episode of feeling he was going to pass out. - Gastrointestinal: Reports a history of rectal bleeding with hard stools but is not currently constipated and bleeding has stopped. Physical Exam - Vitals: Blood pressure is 130/78 mmHg. - Abdomen: Non-tender to palpation. - Extremities: No pain on palpation of bilateral knees. - No lower extremity edema. - Musculoskeletal: Full range of motion of bilateral lower extremities against gravity. - Neurological: Strength is 5/5 in bilateral upper extremities with finger squeeze. - Normal shoulder shrug. Results - Labs: - CBC: Anemia with hemoglobin of 12 and hematocrit of 36; this finding is chronic. - Chemistry panel: Normal electrolytes and kidney function. - Blood glucose: Elevated at 126 mg/dL on a non-fasting sample. - Liver function tests: Previously elevated in June, but have since normalized. - Urinalysis: Negative. - Urine toxicology: Positive for methadone; negative for other substances. - Imaging: - Abdominal ultrasound (July): Revealed hepatic steatosis. Plan Patient was informed and verbally consented to the use of an ambient scribe for clinic note documentation during this visit. 1. Chemical Exposure The patient's recent symptoms of near-syncope are likely related to an inhalational exposure to an unknown chemical, possibly oven cleaner carpet and upholstery. Workup in the emergency room, including bloodwork, did not reveal any acute abnormalities such as electrolyte imbalance. As the symptoms are improving with time and distance from the exposure, the plan is to monitor. Advised to maintain adequate hydration to help dilute and excrete any residual substances. The patient should return if symptoms recur or worsen. 2. Chronic Anemia The patient has a chronic, stable anemia with a hemoglobin of 12 and hematocrit of 36, which has been present for several years. This is likely related to his history of intermittent rectal bleeding secondary to constipation and hard stools. The underlying cause appears to be improving since starting hydroxyzine, and no acute intervention for the anemia is indicated at this time. 3. Generalized Anxiety Disorder The patient's anxiety is stable on hydroxyzine. Continue current medication. 4. Polysubstance Abuse, In Remission The patient is stable on methadone maintenance therapy. He reports significant fatigue from methadone, which he manages with high caffeine intake. Advised to reduce daily coffee consumption to about two glasses to avoid excessive cardiac strain. 5. Hepatic Steatosis The patient has a known diagnosis of hepatic steatosis, and recent labs show normalized liver function tests. Recommended lifestyle modifications including a low-fat diet and exercise. Discussion Notes I explained to the patient that his recent symptoms of feeling faint were likely due to inhaling a chemical, but his bloodwork at the ER was reassuring and did not show signs of systemic toxicity, such as electrolyte changes. We discussed that since his symptoms are improving, we will monitor him, and I advised him to return if the symptoms come back. I reviewed his chronic anemia, explaining that his red blood cell count is low but has been stable for years and is likely related to his past rectal bleeding. We discussed his high caffeine intake of about a pot of coffee a day and the potential for it to strain his heart; I recommended he reduce this to a couple of glasses per day. I emphasized the importance of staying well-hydrated. I informed him that his physical and neurological exam today was normal. The patient declined vaccinations at this time. Patient Instructions - Your recent symptoms of feeling faint were likely due to breathing in a chemical. - Since you are feeling better, we will continue to monitor you. - Please let me know if your symptoms of dizziness or feeling faint return. - Drink plenty of fluids to stay hydrated. - Try to cut back on your coffee drinking to about two cups per day. - Continue your medication for anxiety as prescribed. - Follow a low-fat diet and try to get regular exercise. - You have chosen not to receive any vaccinations at this time.
[2025-03-27 17:33] VITALS: BP 130/78
== END 2025-03-27 17:36 | disposition home or self-care (01) ==
LOC: HO.HMCH 16:41
PROVIDERS: PCP Internal Medicine; Visit Provider Internal Medicine
DX: F19.10 Other psychoactive substance abuse, uncomplicated (principal); K76.0 Fatty (change of) liver, not elsewhere classified; D64.9 Anemia, unspecified; F41.1 Generalized anxiety disorder

== ENCOUNTER → 2025-03-27 16:41 | Outpatient (BNVA) | payer OTHER, SELFPAY | PROVIDERS: PCP Internal Medicine; Visit Provider Internal Medicine | DX: F19.10 Other psychoactive substance abuse, uncomplicated (principal); K76.0 Fatty (change of) liver, not elsewhere classified; D64.9 Anemia, unspecified; F41.1 Generalized anxiety disorder | CPT/HCPCS: 99212 ==